=== PATIENT | male | born 1995 | race Hispanic/Latino ===

== ENCOUNTER 2019-04-05 08:23 | Emergency (ER) | payer SELFPAY ==
[2019-04-05] MEDS ORDERED: IBUPROFEN 600 MG TABLET ONE (08:57)
== END 2019-04-05 10:10 | disposition home or self-care (01) ==
LOC: EDH 08:23
DX: J02.9 Acute pharyngitis, unspecified (principal); R07.81 Pleurodynia; Z72.0 Tobacco use
CPT/HCPCS: 71046; 87804; 87880